=== PATIENT | female | born 2000 | race Caucasian/White ===

== ENCOUNTER 2023-06-07 13:24 | Emergency (ER) | payer OTHER, SELFPAY ==
[2023-06-07 13:39] VITALS: BP 125/75; PULSE 55; RESP 16; TEMP 36.4; O2SAT 100
--- NOTE | 2023-06-07 13:43 | ED.URI ---
HPI - URI/Sore Throat General Chief Complaint: Upper Respiratory Infection Stated Complaint: CONGESTION Time Seen by Provider: 06/07/23 13:40 Source: patient Mode of arrival: ambulatory Limitations: no limitations History of Present Illness HPI Narrative: Italia is a 22-year-old female patient presenting to the clinic today with complaints sinus headache, congestion, cough, and ear pain x2 weeks. She reports she has been trying Sudafed and Neti pot to help alleviate her symptoms. She denies any fever or chills. Does report some yellow phlegm when she is coughing. MD elicited complaint: sore throat and nasal congestion Related Data Allergies Allergy/AdvReac Type Severity Reaction Status Date / Time No Known Allergies Allergy Mild Unverified 07/06/07 14:20 Review of Systems Review of Systems: Pertinent positives per HPI. Patient denies any fever, chills, rash, visual changes, dizziness, cough, shortness of breath, chest pain, palpitations, nausea, vomiting, diarrhea, constipation, abdominal pain, or any urinary issues. PMFSH Comments At the time of my signature, I reviewed and agree with the nursing past medical, surgical, social, and family history. There is no relevant family history pertinent to the patient complaint. Exam Narrative: General: Well-developed, well nourished, in no apparent distress Head: Normocephalic, atraumatic Eyes: Pupils equally round and reactive to light bilaterally, EOM intact, sclera and conjunctive clear, no discharge, lids normal Ears: TMs intact, congested and red r, ear canals clear, no drainage, grossly hearing normal. Nose: Nares patent, yellow discharge, moderate to severe inflammation, maxillary and frontal sinus tenderness. Mouth: Oral pharynx without lesions or masses, good dentition, MMM. Postnasal drip Neck: Supple, trachea midline, no enlargement of anterior or posterior cervical nodes, no thyroid masses or goiter palpable. Cardio: Regular rate and rhythm, s1 and s2 normal, no murmur appreciated. Resp: Clear to auscultation bilaterally, no rhonchi, rales, wheezing or rubs Course Course Emergency Course: Portions of this record may have been created with voice recognition software. Level of Care: Express Care Visit Vital Signs Vital signs: Vital Signs Temperature 36.4 C L 06/07/23 13:39 Pulse Rate 55 L 06/07/23 13:39 Respiratory Rate 16 06/07/23 13:39 Blood Pressure 125/75 06/07/23 13:39 Pulse Oximetry 100 06/07/23 13:39 Temperature 36.4 C L 06/07/23 13:39 Pulse Rate 55 L 06/07/23 13:39 Respiratory Rate 16 06/07/23 13:39 Blood Pressure 125/75 06/07/23 13:39 Pulse Oximetry 100 06/07/23 13:39 Vital signs reviewed MDM - URI/Sore Throat MDM Narrative Medical decision making narrative: At the time of visit patient is resting comfortably exam table. I suspect patient has acute bacterial rhinosinusitis. Prescription for prednisone sent to pharmacy and were discussed patient reports understanding discharge instructions and agrees to treatment Differential Diagnosis Differential diagnosis: Likely upper respiratory infection, otitis media, sinusitis, viral infection, bronchitis, influenza, pharyngitis and other (COVID) Discharge Plan Discharge Clinical Impression: Acute bacterial rhinosinusitis Patient Disposition: Home, Self-Care Condition: Stable Instructions: Antibiotic Form, Rhinosinusitis (ED) Additional Instructions: Take prescription medications only as prescribed-prednisone and Augmentin Increase fluids and stay well hydrated Tylenol/motrin for pain/fever Flonase and OTC antihistamines as directed Vicks vapor rub to open sinuses Sinus rinses for congestion Cepacol spray, cough drops, throat lozenges, warm tea with honey/lemon, gargle salt water to soothe throat BRAT diet for diarrhea Clear liquids x 24 hours then advance as tolerated for nausea/vomiting Go to the ED if you develop a w
== END 2023-06-07 13:47 | disposition home or self-care (01) ==
PROVIDERS: Emergency Provider Nurse Practitioner Family; PCP Nurse Practitioner Adult Health
DX: J01.90 Acute sinusitis, unspecified (principal)
CPT/HCPCS: 99213; G0463

== ENCOUNTER 2023-06-15 08:14 | Emergency (ER) | payer OTHER, SELFPAY ==
[2023-06-15 08:41] VITALS: BP 135/92; PULSE 99; RESP 16; TEMP 36.8; O2SAT 98
[2023-06-15 08:42] VITALS: BP 135/92; PULSE 99; RESP 16; TEMP 36.8; O2SAT 98
--- NOTE | 2023-06-15 09:11 | ED.FEMALEGU ---
HPI - Female Genitourinary General Chief complaint: Urogenital-Female Stated complaint: UTI SYMPTOMS Time Seen by Provider: 06/15/23 08:55 Source: patient, RN notes reviewed and old records reviewed Mode of arrival: ambulatory Limitations: no limitations History of Present Illness HPI Narrative: Patient presents today complaining of right flank pain intermittently and urinary frequency with suprapubic discomfort since last night. Denies dysuria. Pain increases while sitting. She took a dose of Aleve last night without relief. Currently rates her flank pain 6/10. She has been on Augmentin for sinusitis. Denies concerns for sexually transmitted infections. LMP 1 week ago Related Data Allergies Allergy/AdvReac Type Severity Reaction Status Date / Time No Known Allergies Allergy Mild Unverified 06/15/23 08:37 Review of Systems Review of Systems: CONSTITUTIONAL: Denies body aches, fever, chills, or sweats. EYES: Denies visual changes, redness, or discharge. ENT: Denies rhinorrhea, congestion, sore throat, or otalgia. CARDIOVASCULAR: Denies chest pain, palpitations, or edema. RESPIRATORY: Denies cough or dyspnea. GASTROINTESTINAL: Denies nausea, vomiting, or diarrhea.+ right flank pain, suprapubic discomfort GENITOURINARY: Denies dysuria or hematuria.+ frequency SKIN: Denies rash, itching, or wounds. MUSCULOSKELETAL: Denies back pain, joint pain, or myalgia. NEUROLOGIC: Denies headache, numbness, tingling, or weakness. PSYCH: Denies depression or anxiety. PMFSH Comments At time of signature, I have reviewed and agree with nursing past medical, surgical, social and family history unless otherwise noted. Please see nursing chart for further information. There is no relevant family history pertinent to the presenting complaint Exam Narrative: GENERAL: Well-appearing, well-nourished, and in no acute distress. HEAD: Normocephalic, atraumatic. EYES: EOMI. No redness or drainage. Conjunctivae normal. ENT: Mucous membranes pink and moist. NECK: Normal AROM. CHEST: No respiratory distress. Clear to auscultation. HEART: Regular rate and rhythm. No murmur appreciated. Normal peripheral pulses. ABDOMEN: Soft, nondistended, normal active bowel sounds. -heel jar, very mild bilateral lower abdominal and suprapubic tenderness without rebound or guarding. Mild right CVAT. EXTREMITIES: Normal range of motion. No edema. SKIN: Warm, dry, no rash. Capillary refill normal. Normal skin turgor. NEURO: No focal deficits. Alert and oriented x3. Gait steady. Course Course Level of Care: Express Care Visit Vital Signs Vital signs: Vital Signs Temperature 98.2 F 06/15/23 08:41 Pulse Rate 99 06/15/23 08:41 Respiratory Rate 16 06/15/23 08:41 Blood Pressure 135/92 H 06/15/23 08:41 Pulse Oximetry 98 06/15/23 08:41 Temperature 98.2 F 06/15/23 08:42 Pulse Rate 99 06/15/23 08:42 Respiratory Rate 16 06/15/23 08:42 Blood Pressure 135/92 H 06/15/23 08:42 Pulse Oximetry 98 06/15/23 08:42 Reviewed. Pt has been instructed to follow up with her PCP regarding her elevated blood pressure today. MDM - Female Genitourinary MDM Narrative Medical decision making narrative: Urinalysis negative. Urine culture pending. Bedside test negative. Etiology of symptoms unclear, but patient does not have an acute abdomen at this time. Agrees with plan to treat with [id number] medication and go to the ER if symptoms worsen. Anticipatory guidance given. Differential Diagnosis Differential diagnosis: Likely urinary tract infection, vaginitis, cystitis and other (Kidney stone, PID, ectopic ) Lab Data Attestation: I reviewed the patient's lab results. Lab results narrative: Bedside negative. Labs: Urine Glucose Negative Reference Range: Negative Urine Bilirubin Negative
== END 2023-06-15 09:33 | disposition home or self-care (01) ==
PROVIDERS: Emergency Provider Nurse Practitioner; PCP Nurse Practitioner Adult Health
DX: R10.31 Right lower quadrant pain (principal); R10.32 Left lower quadrant pain
CPT/HCPCS: 81003; 87086; 99213; G0463